=== PATIENT | male | born 1995 ===

== ENCOUNTER 2018-07-14 02:01 | Emergency (ER) | payer BC ==
--- NOTE | 2018-07-14 02:31 | EDPHY ---
H & P Stated Complaint: Left sided face pain after root canal Time Seen by Provider: 07/14/18 02:04 HPI/ROS: Chief Complaint: Face pain HPI: 23-year-old male who had a root canal done on his left 2nd incisor yesterday for dental abscess. Patient states that over the course of the evening and morning the pain is been getting worse. He has been having pain on the entire left side of his face pretty taking ibuprofen without any relief. Did call to make an appoint with his dentist at 7:00 a.m. This morning but he has been unable to get any rest secondary to pain. No fevers or chills. No vision changes. Pain is about at 8/10. ROS: 10 systems were reviewed and were negative except those elements noted in the HPI. PMH: Denies Social History: No smoking, no alcohol, no recreational drug use Family History: non-contributory Physical Exam: Gen: Awake, Alert, No Distress HEENT: Nose: no rhinorrhea Eyes: PERRLA, EOMI Mouth: Moist mucosa dentitions normal, crown is in place. There is no fluids or erythema. There is mild tenderness to percussion. Neck: Supple, no JVD Chest: nontender, lungs clear to auscultation Heart: S1, S2 normal, no murmur Abd: Soft, non-tender, no guarding Back: no CVA tenderness, no midline tenderness Ext: no edema, non-tender Skin: no rash Neuro: CN II-XII intact, Sensation grossly intact, Strength 5/5 in bilateral upper and lower extremities - Personal History Current Tetanus/Diphtheria Vaccine: Yes Current Tetanus Diphtheria and Acellular Pertussis (TDAP): Yes - Medical/Surgical History Hx Asthma: No Hx Chronic Respiratory Disease: No Hx Diabetes: No Hx Cardiac Disease: No Hx Renal Disease: No Hx Cirrhosis: No Hx Alcoholism: No Hx HIV/AIDS: No Hx Splenectomy or Spleen Trauma: No Other PMH: ACL repair - Social History Smoking Status: Light smoker Constitutional: Initial Vital Signs Temperature (C) 36.7 C 07/14/18 02:05 Heart Rate 80 07/14/18 02:05 Respiratory Rate 16 07/14/18 02:05 Blood Pressure 162/97 H 07/14/18 02:05 O2 Sat (%) 95 07/14/18 02:05 O2 Delivery Mode Room Air Allergies/Adverse Reactions: phenobarbital Allergy (Verified 07/14/18 02:11) Home Medications: Medication Instructions Recorded NK [No Known Home Meds] 07/14/18 Medical Decision Making Procedures: Procedure: Regional anesthesia. A dental block with inferior orbital nerve block was performed for left upper tooth pain. The block was performed with Marcaine. The patient experienced complete pain relief. The procedure was performed by myself. ED Course/Re-evaluation: Patient presenting with facial pain after root canal today. No signs of infection at this time. He has an appoint his dentist and 5 hr. Pain is improved after a dental block. Will discharge with follow-up with his dentist as scheduled. Departure - Departure Disposition: Home, Routine, Self-Care Clinical Impression: Pain, dental Condition: Good Instructions: Toothache (ED) Additional Instructions: Follow up with your dentist at 7:00 a.m. The morning as scheduled. Referrals: NONE *PRIMARY CARE P,. [Primary Care Provider] - As per Instructions
[2018-07-14 03:11] VITALS: BP 134/77
== END 2018-07-14 03:09 | disposition home or self-care (01) ==
PROC: 3E0X3BZ Introduction of Anesthetic Agent into Cranial Nerves, Percutaneous Approach (ICD-10-PCS; principal; 2018-07-14)
DX: K08.89 Other specified disorders of teeth and supporting structures (principal); F17.200 Nicotine dependence, unspecified, uncomplicated; Z98.818 Other dental procedure status

== ENCOUNTER 2018-07-14 18:23 | Emergency (ER) | payer BC ==
--- NOTE | 2018-07-14 18:43 | EDPHY ---
H & P Stated Complaint: Recent root canal, increased swelling to left side of face, possible in fec Time Seen by Provider: 07/14/18 18:37 HPI/ROS: CHIEF COMPLAINT: Facial swelling post root canal HISTORY OF PRESENT ILLNESS: 23-year-old male, immunocompetent, postop day 2 post endodontic therapy of tooth number 10. He saw his fountain server today due to complaints of pain, was prescribed amoxicillin however notes progressive swelling to the left face including nasolabial fold blunting since this afternoon. Denies: Foul odor, fetid taste, headache, nausea, vomiting, nuchal rigidity REVIEW OF SYSTEMS: 10 systems reviewed and negative with the exception of the elements mentioned in the history of present illness PAST MEDICAL & SURGICAL HISTORY: No pertinent medical or surgical history SOCIAL HISTORY: Student [employer] ([place], [place]) PHYSICAL EXAM (Prior to examination, patient consented to physical exam, hands were washed and my usual and customary physical exam procedures followed) 1) GENERAL: Well-developed, well-nourished, alert and oriented. Appears to be in no acute distress. 2) HEAD: Normocephalic, atraumatic 3) HEENT: Pupils equal, round, reactive to light bilaterally. Sclera anicteric. There is mild blunting of the left nasolabial fold. Tooth 10 is tender to percussion with noted surgical changes. Floor of mouth soft with no induration, no tenderness. No trismus no drooling. No hot potato voice. 4) NECK: Full range of motion, no meningeal signs. Submental , submandibular spaces are soft no induration. 5) LUNGS: Clear auscultation bilaterally, no wheezes, no rhonchi, no retractions. 6) HEART: Regular rate and rhythm, no murmur, no heave, no gallop. 7) ABDOMEN: No guarding, no rebound, no focal tenderness, 8) MUSCULOSKELETAL: No peripheral edema or discoloration. 9) BACK: No visual or palpable abnormality. 10) SKIN: No rash, no petechiae. 11) Psychiatric: Patient is oriented X 3, there is no agitation. DIFFERENTIAL DIAGNOSIS: In no particular order including but not limited to cellulitis, periapical abscess, Fred's angina - Personal History Current Tetanus Diphtheria and Acellular Pertussis (TDAP): Yes - Medical/Surgical History Hx Asthma: No Hx Chronic Respiratory Disease: No Hx Diabetes: No Hx Cardiac Disease: No Hx Renal Disease: No Hx Cirrhosis: No Hx Alcoholism: No Hx HIV/AIDS: No Hx Splenectomy or Spleen Trauma: No Other PMH: ACL repair - Social History Smoking Status: Light smoker Constitutional: Initial Vital Signs Temperature (C) 37.1 C 07/14/18 18:25 Heart Rate 83 07/14/18 18:25 Respiratory Rate 16 07/14/18 18:25 Blood Pressure 133/83 H 07/14/18 18:25 O2 Sat (%) 96 07/14/18 18:25 O2 Delivery Mode Room Air Allergies/Adverse Reactions: phenobarbital Allergy (Verified 07/14/18 02:11) Home Medications: Medication Instructions Recorded Amoxicillin 07/14/18 Hydrocodone-Acetamin 5-325 mg 07/14/18 Medical Decision Making - Diagnostics Imaging Results: Imaging Impressions Face CT 07/14/18 19:00 Impression: 1. Left tooth #10 radiodense filing, with an 11- x 10-mm periapical abscess and anterior cellulitis anterior to the left side of the maxilla. 2. No sinusitis. Findings and recommendations discussed with Emergency Department physician, Gurmeet De La Cruz PA-C, at 1930 hours, on July 14, 2018. Final report concurs with initial preliminary interpretation. ED Course/Re-evaluation: 7:53 p.m.: Phone consultation with the patient's fountain server Dr. Sanchez. Explained the CT imaging results showing a periapical abscess of tooth 10. He recommend patient come to his office in the morning for incision and drainage. Patient is given dose of IV clindamycin the ER, will be discharged with take- home pack of clindamycin prior to seeing his fountain server in the morning. His pain is controlled. He feels comfortable with this plan. Informed that his father is a physician in [place]. I offered to speak with father however patient declines this. Patient feels comfortable being discharged. All questions and concerns addressed by myself. Patient given my usual and customary discharge precautions and instructions regarding their clinical impression. Care of patient under supervision of secondary supervising physician Dr Raul Johnson. - Data Points Laboratory Results: Laboratory Results 07/14/18 18:48 07/14/18 18:48 07/14/18 07/14/18 07/14/18 18:54 18:48 18:48 WBC 9.90 10^3/uL H 10^3/uL (3.80-9.50) RBC 5.48 10^6/uL 10^6/uL (4.40-6.38) Hgb 16.3 g/dL g/dL (13.7-17.5) POC Hgb 16.7 gm/dL gm/dL (13.7-17.5) Hct 46.7 % % (40.0-51.0) POC Hct 49 % % (40-51) MCV 85.2 fL fL (81.5-99.8) MCH 29.7 pg pg (27.9-34.1) MCHC 34.9 g/dL g/dL (32.4-36.7) RDW 12.1 % % (11.5-15.2) Plt Count 251 10^3/uL 10^3/uL (150-400) MPV 10.3 fL fL (8.7-11.7) Neut % (Auto) 64.9 % % (39.3-74.2) Lymph % (Auto) 25.6 % % (15.0-45.0) [place] % (Auto) 8.2 % % (4.5-13.0) Eos % (Auto) 0.4 % L % (0.6-7.6) Baso % (Auto) 0.5 % % (0.3-1.7) Nucleat RBC Rel Count 0.0 % % (0.0-0.2) Absolute Neuts (auto) 6.43 10^3/uL 10^3/uL (1.70-6.50) Absolute Lymphs (auto) 2.53 10^3/uL 10^3/uL (1.00-3.00) Absolute Monos (auto) 0.81 10^3/uL H 10^3/uL (0.30-0.80) Absolute Eos (auto) 0.04 10^3/uL 10^3/uL (0.03-0.40) Absolute Basos (auto) 0.05 10^3/uL 10^3/uL (0.02-0.10) Absolute Nucleated RBC 0.00 10^3/uL 10^3/uL (0-0.01) Immature Gran % 0.4 % % (0.0-1.1) Immature Gran # 0.04 10^3/uL 10^3/uL (0.00-0.10) POC Sodium 139 mEq/L mEq/L (135-145) Sodium 136 mEq/L mEq/L (135-145) POC Potassium 3.9 mEq/L mEq/L (3.3-5.0) Potassium 4.3 mEq/L mEq/L (3.5-5.2) POC Chloride 97 mEq/L mEq/L (97-110) Chloride 99 mEq/L mEq/L (97-110) Carbon Dioxide 26 mEq/l mEq/l (22-31) POC Total CO2 26 mEq/L mEq/L (22-31) Anion Gap 11 mEq/L mEq/L (6-14) POC BUN 4 mg/dL L mg/dL (7-23) BUN 6 mg/dL L mg/dL (7-23) Creatinine 0.9 mg/dL mg/dL (0.7-1.3) POC Creatinine 0.9 mg/dL mg/dL (0.7-1.3) Estimated GFR > 60 Glucose 99 mg/dL mg/dL (70-100) POC Glucose 101 mg/dL H mg/dL (70-100) Calcium 9.7 mg/dL mg/dL (8.5-10.4) Medications Given: Discontinued Medications Clindamycin Phosphate/Dextrose (Cleocin 600 Mg (Premix)) 50 mls @ 100 mls/hr IV EDNOW ONE PRN Reason: Protocol Stop: 07/14/18 20:08 Last Admin: 07/14/18 19:49 Dose: 50 mls Point of Care Test Results: Chemistry 07/14/18 18:54 POC Sodium 139 mEq/L mEq/L (135-145) POC Potassium 3.9 mEq/L mEq/L (3.3-5.0) POC Chloride 97 mEq/L mEq/L (97-110) POC Total CO2 26 mEq/L mEq/L (22-31) POC BUN 4 mg/dL L mg/dL (7-23) POC Creatinine 0.9 mg/dL mg/dL (0.7-1.3) POC Glucose 101 mg/dL H mg/dL (70-100) ISTAT H&H 07/14/18 18:54 POC Hgb 16.7 gm/dL gm/dL (13.7-17.5) POC Hct 49 % % (40-51) Departure - Departure Disposition: Home, Routine, Self-Care Clinical Impression: Periapical abscess Condition: Good Instructions: Clindamycin (By mouth), Dental Abscess (ED) Additional Instructions: Return to the ER if you develop new or worsening symptoms. Referrals: Follow-up, tomorrow morning with Dr. Sanchez [Other] - As per Instructions
[2018-07-14 19:04] LABS: PLATELET COUNT 251 10^3/uL (150-400)
[2018-07-14] MEDS ORDERED: IOPAMIDOL (ISOVUE-300) 100 ML BTL ONE (19:06)
[2018-07-14] MEDS ORDERED: CLINDAMYCIN 600 MG/DEXTROSE 50 ML IV ONE (19:39)
[2018-07-14] MEDS ORDERED: CLINDAMYCIN 150MG PREPACK#6 BTL TAKEHOME ONE (20:10)
[2018-07-14 20:31] VITALS: BP 130/80
== END 2018-07-14 20:30 | disposition home or self-care (01) ==
DX: K04.7 Periapical abscess without sinus (principal); F17.200 Nicotine dependence, unspecified, uncomplicated
CPT/HCPCS: 82435-PO; 82565-PO; 82947-PO; 84132-PO; 84295-PO; 84520-PO; 85014-ER; 96365; Q9967